=== PATIENT | female | born 2005 | race Caucasian/White ===

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

== ENCOUNTER 2024-01-23 04:00 | Emergency (ER) | payer OTHER ==
[~2024-01-23] VITALS: Ht 172.7 cm; Wt 133.8 kg
[2024-01-23] MEDS ORDERED: SILVER SULFADIAZINE 25 GM TUBE T ONE (04:15)
[2024-01-23] MEDS ORDERED: Bacitracin Zinc 14 GM TUBE T ONE (04:15)
[2024-01-23] MEDS ORDERED: ANTIBIOTIC28.4 GM T (04:20)
[2024-01-23] MEDS ORDERED: XEROFORM PETRO1 EACH T (04:20)
== END 2024-01-23 04:26 | disposition home or self-care (01) ==
LOC: ED 04:00
DX: T23.101A Burn of first degree of right hand, unspecified site, initial encounter (principal); T31.0 Burns involving less than 10% of body surface; X08.8XXA Exposure to other specified smoke, fire and flames, initial encounter; Y93.89 Activity, other specified; Y92.89 Other specified places as the place of occurrence of the external cause; Y99.0 Civilian activity done for income or pay

== ENCOUNTER 2025-08-03 22:03 | Emergency (ER) | payer SELFPAY ==
[~2025-08-03] VITALS: Ht 175.2 cm; Wt 129.3 kg
[~2025-08-03 22:03] MED LIST changes: +ANTIBIOTIC28.4 GM T; +XEROFORM PETRO1 EACH T
[2025-08-03 22:48] LABS: BASO # 0.1 10*3/uL (0.0-0.1); BASO % 0.6 % (0.0-1.0); EOS # 0.0 10*3/uL (0.0-0.4); EOS % 0.5 % (1.0-4.0); MEAN CELL VOLUME 89.6 fl (81.0-99.0); MEAN CORPUSCULAR HGB 29.5 pg (27.0-31.0); MEAN PLATELET VOLUME 9.6 fl (9.6-12.3); MONO # 0.7 10*3/uL (0.1-1.0); MONO % 8.0 % (3.0-9.0); NEUT # 5.9 10*3/uL (2.3-7.9); NEUT % 73.3 % (47.0-73.0); NUCLEATED RED BLOOD CELL 0.0 % (0.0-0.0); NUCLEATED RED BLOOD CELL 0.0 10*3/uL (0.0-0.0); PLATELET COUNT AUTOMATED 227 10*3/uL (130-400); RED CELL DISTRI WIDTH 13.3 % (0-14.5)
== END 2025-08-03 23:35 | disposition home or self-care (01) ==
LOC: ED 22:03
PROVIDERS: Internal Medicine
DX: J02.9 Acute pharyngitis, unspecified (principal); R50.9 Fever, unspecified; E66.9 Obesity, unspecified

== ENCOUNTER 2025-08-05 22:21 | Emergency (ER) | payer SELFPAY ==
[~2025-08-05] VITALS: Ht 177.8 cm; Wt 90.7 kg
[2025-08-05] MEDS ORDERED: AMOX-CLAV 875-1 EACH PO (22:32)
[2025-08-05] MEDS ORDERED: Amoxicillin/Clavulanate Pota 875 MG TAB PO ONE ×3 (22:35)
== END 2025-08-05 22:39 | disposition home or self-care (01) ==
LOC: ED 22:21
DX: J02.9 Acute pharyngitis, unspecified (principal); E66.9 Obesity, unspecified

== ENCOUNTER 2025-08-11 02:48 | Emergency (ER) | payer SELFPAY ==
[~2025-08-11] VITALS: Ht 175.2 cm; Wt 129.3 kg
[~2025-08-11 02:48] MED LIST changes: +AMOX-CLAV 875-1 EACH PO
[2025-08-11] MEDS ORDERED: Ondansetron Hydrochloride 4 MG/2 ML VIAL IV ONE (02:55)
[2025-08-11] MEDS ORDERED: SODIUM CHLORIDE 0.9% 1,000 ML IV ONE (02:55)
[2025-08-11] MEDS ORDERED: AMOXICILLIN500 M2 PO (02:56)
== END 2025-08-11 05:48 | disposition home or self-care (01) ==
LOC: ED 02:48
DX: B34.9 Viral infection, unspecified (principal); E66.9 Obesity, unspecified